=== PATIENT | female | born 1995 | race Caucasian/White ===

== ENCOUNTER 2016-10-24 17:06 | Emergency (ER) | payer BC, MEDICAID ==
[2016-10-24] VITALS (9 sets, daily range): BP systolic 121–132; BP diastolic 77–87; PULSE 70–95; RESP 18
[~2016-10-24 17:06] MED LIST: AZOR5TAB4 PO; CLON0.1T PO; HYDR-3533 PO; METO50TA PO; ZOLO25TA PO
[2016-10-24 19:00] LABS: HEMATOCRIT 36.4 % (35.0-46.0); MEAN CELL VOLUME 86.2 FL (80.0-100.0); MEAN CORPUSCULAR HEMOGLOBIN 28.9 PG (27.0-34.0); MEAN CORPUSCULAR HGB CONC 33.6 % (32.0-36.0); PLATELET COUNT 242 TH/MM3 (150-450); RED BLOOD COUNT 4.22 MIL/MM3 (4.00-5.30); RED CELL DISTRIBUTION WIDTH 13.6 % (11.6-17.2); REVIEW FLAG FINAL; WHITE BLOOD COUNT 9.9 TH/MM3 (4.0-11.0)
[2016-10-24 19:10] LABS: BLOOD, URINE NEG (NEG); CALCIUM OXALATE CRYSTALS,URINE RARE /hpf; COMMENT (UR) CULT NOT INDICATED; CULTURE IF INDICATED CULT NOT INDICATED; GLUCOSE,URINE NEG (NEG); HYALINE CAST, URINE 1 /lpf (RARE); KETONE, URINE NEG (NEG); MUCUS URINE FEW /lpf (OCC); NITRITE,URINE NEG (NEG); SQUAMOUS EPITHELIAL CELL URINE 1 /hpf (0-5); URINE COLOR YELLOW (YELLW/STRAW)
[2016-10-24 19:29] LABS: AMPHETAMINE, URINE NEG (NEG); COCAINE, URINE NEG (NEG)
[2016-10-24 19:29] LABS: ANION GAP 10 MEQ/L (5-15); AST (GOT) 15 U/L (15-37); BICARBONATE 24.9 MEQ/L (21.0-32.0); BLOOD UREA NITROGEN 6 MG/DL (7-18); CHLORIDE 104 MEQ/L (98-107); GLOMERULAR FILTRATION RATE 187 ML/MIN (>89); POTASSIUM 3.7 MEQ/L (3.5-5.1); SODIUM (NA) 139 MEQ/L (136-145); URIC ACID 2.5 MG/DL (2.6-6.0)
[2016-10-24 19:32] LABS: BARBITURATES, URINE NEG (NEG)
[2016-10-24 19:32] LABS: ALKALINE PHOSPHATASE 95 U/L (45-117); ALT (GPT) 20 U/L (10-53); TOTAL BILIRUBIN ADULT 0.2 MG/DL (0.2-1.0)
--- NOTE | 2016-10-24 19:59 | PD ---
HPI Chief Complaint Complaint of high blood pressure high heart rate Date Seen: Oct 24, 2016 Travel History International Travel<30 Days: No Contact w/Intl Traveler<30Days: No Known Affected Area: No History of Present Illness HPI The patient is 21-year-old white female at [address] Daily for care presents complaining of high blood pressure when she was at work today. Patient states that she felt bad and had to take her blood pressure was 190/114, the patient has a history of high blood pressure since she was 14 years old and at one point was on beta blockers other medications for blood pressure. She's been off meds now for quite some time. Since being here on OB ED patient's blood pressures all been within normal range , heart rate is within normal limits reactive to 22 weeks with no contractions seen Para: 1 : 2 History Past Medical History Narrative Medical Chronic hypertension currently not on meds and Dr. Daily is aware of her medical condition Obstetric History Obstetric History One vaginal delivery Social History Alcohol Use: No Tobacco Use: No Substance Abuse: No Allergies-Medications (Allergen,Severity, Reaction): Coded Allergies: Contrast Media (Verified Allergy, Severe, ANAPHYLAXIS, 06/26/15) Naprosyn (Verified Allergy, Severe, BLEEDING, 06/26/15) Sulfa (Verified Allergy, Severe, 06/26/15) Home Meds Active Scripts Clonidine 0.1 Mg Tab0.1 Mg PO Q12HR PRN (SBP>180, DBP>95) #6 TAB Ref 0 Prov:Belen Amaro MD 03/12/16 Hydrocodone-Acetaminophen (Lortab)5-325 Mg Tab1 Tab PO Q6H PRN (PAIN GREATER THAN 6) #7 TAB Ref 0 Prov:Belen Amaro MD 03/12/16 Reported Medications Amlodipine-Olmesartan (Dominguez)5-40 Mg Tab1 Tab PO DAILY #30 TAB Ref 0 03/12/16 Metoprolol Tartrate 50 Mg Tab50 Mg PO DAILY #30 TAB Ref 0 03/12/16 Sertraline (Zoloft)25 Mg Tab25 Mg PO DAILY #30 TAB Ref 0 03/12/16 Review of Systems General / Constitutional: No: Fever, Weight Gain, Chills, Other Eyes: No: Diploplia, Blurred Vision, Visual changes, Pain, Photophobia HENT: No: Headaches, Vertigo, Lightheadedness Cardiovascular: Tachycardia Respiratory: No: Cough, Short of Breath, Other Gastrointestinal: No: Nausea, Vomiting, Diarrhea Genitourinary: No: Decreased Urinary Output, Oliguria Musculoskeletal: No: Limited ROM, Weakness, Cramping, Edema, Pain Skin: No Rash, No Itching, No Dryness, No Lumps, No Change in Pigmentation, No Change in Nails, No Alopecia, No Lesions Neurologic: No: Weakness, Dizziness, Syncope, Focal Abnormalities, Coordination Problem, Headache, Slurred Speech, Seizures Psychiatric: No: Depression, Suicidal Ideations, Homicidal Ideation Endocrine: No: Heat Intolerance, Cold Intolerance, Polydipsia, Polyuria, Other Physical Exam Vital Signs Date Time Temp Pulse Resp B/P Pulse Ox O2 Delivery O2 Flow Rate FiO2 10/24/16 19:00 74 132/84 10/24/16 18:45 77 124/79 10/24/16 18:30 79 126/81 10/24/16 18:23 82 121/87 10/24/16 17:40 95 129/77 Narrative GENERAL: Well-nourished, well-developed patient. SKIN: Warm and dry. HEAD: Normocephalic and atraumatic. EYES: No scleral icterus. No injection or drainage. ENT: No nasal drainage noted. Mucous membranes pink. Airway patent. NECK: Supple, trachea midline. No JVD. CARDIOVASCULAR: Regular rate and rhythm without murmurs, gallops, or rubs. RESPIRATORY: Breath sounds equal bilaterally. No accessory muscle use. BREASTS: Bilateral exam showed no masses , no retractions, no nipple discharge. ABDOMEN/GI: Abdomen soft, non-tender, bowel sounds present, no rebound, no guarding Gravid to [22-] weeks size Fundal Height: [-At umbilicus] GENITOURINARY: External Genitalia: intact and normal in appearance BUS glands: [-] Cervix: [-] Dilatation: [Closed-] Effacement: [-] Thick Station: [-3] Membranes: [intact Uterine Contractions: [none-] FHT's: 144 EXTREMITIES: No cyanosis or edema. BACK: Nontender without obvious deformity. No CVA tenderness. NEUROLOGICAL: Awake and alert. Motor and sensory grossly within normal limits. Five out of 5 muscle strength in all muscle groups. Normal speech. Data Data Orders Vital Signs (Adult) .ON ADMISSION (10/24/16 18:08) ^ Labor Status (10/24/16 18:08) Urinalysis - C+S If Indicated (10/24/16 18:08) Cbc No Diff, Includes Plts (10/24/16 18:08) Comprehensive Metabolic Panel (10/24/16 18:08) Uric Acid (10/24/16 18:08) Ob/Psych Drug Screen, Urine (10/24/16 18:08) Ur Bath Salts (10/24/16 17:18) Ur Heroin (10/24/16 17:18) Ur K2 Spice (10/24/16 17:18) Ur Ecstasy (10/24/16 17:18) Phencyclidine Urine (Pcp) (10/24/16 17:18) Labs Laboratory Tests Test 10/24/16 10/24/16 17:18 18:25 Urine Color YELLOW Urine Turbidity CLEAR Urine pH 6.0 Urine Specific [place] 1.023 Urine Protein TRACE Urine Glucose (UA) NEG Urine Ketones NEG Urine Occult Blood NEG Urine Nitrite NEG Urine Bilirubin NEG Urine Urobilinogen LESS THAN 2.0 Urine Leukocyte Esterase NEG Urine WBC 1 Urine Squamous Epithelial 1 Cells Urine Calcium Oxalate Crystals RARE Urine Hyaline Casts 1 Urine Mucus FEW Microscopic Urinalysis Comment CULT NOT INDICATED Urine Opiates Screen NEG Urine Barbiturates Screen NEG Urine Amphetamines Screen NEG Urine Benzodiazepines Screen NEG Urine Cocaine Screen NEG Urine Cannabinoids Screen NEG White Blood Count 9.9 Red Blood Count 4.22 Hemoglobin 12.2 Hematocrit 36.4 Mean Corpuscular Volume 86.2 Mean Corpuscular Hemoglobin 28.9 Mean Corpuscular Hemoglobin 33.6 Concent Red Cell Distribution Width 13.6 Platelet Count 242 Mean Platelet Volume 7.7 Sodium Level 139 Potassium Level 3.7 Chloride Level 104 Carbon Dioxide Level 24.9 Anion Gap 10 Blood Urea Nitrogen 6 Creatinine 0.42 Estimat Glomerular Filtration 187 Rate Random Glucose 89 Uric Acid 2.5 Calcium Level 8.3 Total Bilirubin 0.2 Aspartate Amino Transf 15 (AST/SGOT) Alanine Aminotransferase 20 (ALT/SGPT) Alkaline Phosphatase 95 Total Protein 6.6 Albumin 2.8 MDM Interpretation(s) This patient is a 21-year-old white female at 22 weeks presents planning of high blood pressure noted at work. She's had some abdominal cramping. She has a history of high blood pressure since she was 14 medications now. One blood pressure at work was 190/114 however here in OB ED she's been here for at least an hour before and all her blood pressures are totally normal, all the patient's cervix is closed-H labs within normal limits her urine shows a trace protein , patient's urine also was negative for any drug use, no cocaine or anything which cause a super spike in her blood pressure Plan Plan we will discharge the patient home to bedrest today. She also describes her job is very labors with lifting heavy boxes overdoing it all the time and she needs to talk to Dr. Daily about this by getting some alteration in her job description so that she can have a physically easier job. This lab drawn today as a baseline for her because she has a history of high blood pressure and may well-developed superimposed regnancy-related hypertension or worsening over the previous hypertensive condition and require 24-hour urines and multiple labs. Diagnosis Diagnosis: Primary Impression: Hypertension Additional Impression: Abdominal pain affecting , antepartum Disposition: 01 DISCHARGE HOME Condition: Stable Blaise Mcguire II, MD Oct 24, 2016 19:59
[2016-10-24] MEDS ORDERED: ONDANSETRON ODT 4 MG TAB PO ONE (20:15)
[2016-11-03 08:44] LABS: BATH SALTS (MDPV) UR NEG (NEG); ECSTASY (MDMA) UR NEG (NEG); GABAPENTIN UR NEG (NEG); HEROIN (6-ACETYLMORPHINE) UR NEG (NEG); HYDROMORPHONE U NEG (NEG); K2 SPICE UR NEG (NEG); OBMETHADONE UR NEG (NEG); OXYCODONE (PERCODAN) NEG (NEG); PHENCYCLIDINE URINE NEG (NEG)
== END 2016-10-24 20:18 | disposition home or self-care (01) ==
LOC: HOBED 17:06
DX: O10.912 Unspecified pre-existing hypertension complicating pregnancy, second trimester (principal); R10.9 Unspecified abdominal pain; Z3A.22 22 weeks gestation of pregnancy
CPT/HCPCS: 80053; 80307; 81001; 84550; 85027; 99283; G0481

== ENCOUNTER 2016-11-24 14:35 | Emergency (ER) | payer BC, MEDICAID ==
--- NOTE | 2016-11-24 15:20 | PD ---
HPI Chief Complaint Contractions and pelvic pressure Date Seen: Nov 24, 2016 Time Seen: 15:18 Travel History International Travel<30 Days: No Contact w/Intl Traveler<30Days: No Known Affected Area: No History of Present Illness HPI 21-year-old at 26 weeks and 4 days comes in complaining of contractions and pelvic pressure for most of today. The Contractions have decreased a bit in frequency and is not complaining of lower back pain as well. Patient had a history of labor with her last which was treated with magnesium sulfate on 2 different occasions but eventually delivered at 36 weeks and 6 days, spontaneous vaginal delivery, 5 lbs. 11 oz. Denies vaginal discharge or bleeding Para: 1 : 2 History Past Medical History Medical History: Denies Significant Hx Obstetric History Obstetric History Spontaneous vaginal delivery Past Surgical History Surgical History: No Previous Surgery Family History Family History: Negative Social History Alcohol Use: No Tobacco Use: No Substance Abuse: No Allergies-Medications (Allergen,Severity, Reaction): Coded Allergies: Contrast Media (Verified Allergy, Severe, ANAPHYLAXIS, 06/26/15) Naprosyn (Verified Allergy, Severe, BLEEDING, 06/26/15) Sulfa (Verified Allergy, Severe, 06/26/15) Home Meds Active Scripts Clonidine 0.1 Mg Tab0.1 Mg PO Q12HR PRN (SBP>180, DBP>95) #6 TAB Ref 0 Prov:Belen Amaro MD 03/12/16 Hydrocodone-Acetaminophen (Lortab)5-325 Mg Tab1 Tab PO Q6H PRN (PAIN GREATER THAN 6) #7 TAB Ref 0 Prov:Belen Amaro MD 03/12/16 Reported Medications Amlodipine-Olmesartan (Dominguez)5-40 Mg Tab1 Tab PO DAILY #30 TAB Ref 0 03/12/16 Metoprolol Tartrate 50 Mg Tab50 Mg PO DAILY #30 TAB Ref 0 03/12/16 Sertraline (Zoloft)25 Mg Tab25 Mg PO DAILY #30 TAB Ref 0 03/12/16 Review of Systems Except as stated in HPI: all other systems reviewed are Neg Physical Exam Narrative GENERAL: Well-nourished, well-developed patient. SKIN: Warm and dry. HEAD: Normocephalic and atraumatic. EYES: No scleral icterus. No injection or drainage. ENT: No nasal drainage noted. Mucous membranes pink. Airway patent. NECK: Supple, trachea midline. No JVD. CARDIOVASCULAR: Regular rate and rhythm without murmurs, gallops, or rubs. RESPIRATORY: Breath sounds equal bilaterally. No accessory muscle use. BREASTS: Bilateral exam showed no masses , no retractions, no nipple discharge. ABDOMEN/GI: Abdomen soft, non-tender, bowel sounds present, no rebound, no guarding Gravid to [-26] weeks size Fundal Height: [-] GENITOURINARY: External Genitalia: intact and normal in appearance BUS glands: [-Normal] Cervix: [Posterior-] Dilatation: [Closed-] Effacement: [-0] Station: [-3-] Presentation: [-Vertex] Membranes: [intact ] Uterine Contractions: [Occasional irregular-] FHT's: Category: [-1] Baseline: [140-] Reactive: [-Reactive] Variability: [-Reactive] Decels: [-Absent] EXTREMITIES: No cyanosis or edema. BACK: Nontender without obvious deformity. No CVA tenderness. NEUROLOGICAL: Awake and alert. Motor and sensory grossly within normal limits. Five out of 5 muscle strength in all muscle groups. Normal speech. fibronectin sent Data Data Orders Vital Signs (Adult) .ON ADMISSION (11/24/16 15:16) ^ Labor Status (11/24/16 15:16) Urinalysis - C+S If Indicated (11/24/16 15:16) Diet Liquid (11/24/16 Dinner) Fibronectin (11/24/16 15:16) Becca Rhodes MD Nov 24, 2016 15:20
[2016-11-24 15:59] LABS: BLOOD, URINE NEG (NEG); GLUCOSE,URINE NEG (NEG); KETONE, URINE NEG (NEG); NITRITE,URINE NEG (NEG); PH, URINE 7.5 (5.0-8.5); URINE COLOR LIGHT-YELLOW (YELLW/STRAW)
[2016-11-24 16:01] LABS: COMMENT (UR) CULT NOT INDICATED; CULTURE IF INDICATED CULT NOT INDICATED
== END 2016-11-24 16:55 | disposition home or self-care (01) ==
LOC: HOBED 14:35
DX: O47.02 False labor before 37 completed weeks of gestation, second trimester (principal); Z3A.26 26 weeks gestation of pregnancy
CPT/HCPCS: 81001; 82731; 99283

== ENCOUNTER 2016-12-25 10:58 | Emergency (ER) | payer BC, MEDICAID ==
[~2016-12-25] VITALS: Ht 152.4 cm; Wt 57.2 kg
--- NOTE | 2016-12-25 11:51 | PD ---
HPI Chief Complaint contractions Date Seen: Dec 25, 2016 Time Seen: 11:46 Travel History International Travel<30 Days: No Contact w/Intl Traveler<30Days: No Known Affected Area: No History of Present Illness HPI 21 yo at 31-32 weeks gestation here with contractions. They have improved greatly since leaving work. Has a h/o delivery at 35 weeks, 5#. Patient is getting biweekly FFN, last FFN was negative 8 days ago at the office. Last exam was closed. Para: 1 : 2 History Past Medical History Medical History: Denies Significant Hx Obstetric History Obstetric History x 1 Past Surgical History Surgical History: No Previous Surgery Family History Family History: Negative Social History Alcohol Use: No Tobacco Use: No Substance Abuse: No Allergies-Medications (Allergen,Severity, Reaction): Coded Allergies: Sulfa (Sulfonamide Antibiotics) (Unverified Allergy, Severe, 12/25/16) diatrizoate meglumine (Unverified Allergy, Severe, ANAPHYLAXIS, 12/25/16) gadobenic acid (Unverified Allergy, Severe, ANAPHYLAXIS, 12/25/16) gadodiamide (Unverified Allergy, Severe, ANAPHYLAXIS, 12/25/16) gadoteridol (Unverified Allergy, Severe, ANAPHYLAXIS, 12/25/16) iodixanol (Unverified Allergy, Severe, ANAPHYLAXIS, 12/25/16) iohexol (Unverified Allergy, Severe, ANAPHYLAXIS, 12/25/16) naproxen (Unverified Allergy, Severe, BLEEDING, 12/25/16) Home Meds Active Scripts Clonidine 0.1 Mg Tab0.1 Mg PO Q12HR PRN (SBP>180, DBP>95) #6 TAB Ref 0 Prov:Belen Amaro MD 03/12/16 Hydrocodone-Acetaminophen (Lortab)5-325 Mg Tab1 Tab PO Q6H PRN (PAIN GREATER THAN 6) #7 TAB Ref 0 Prov:Belen Amaro MD 03/12/16 Reported Medications Amlodipine-Olmesartan (Dominguez)5-40 Mg Tab1 Tab PO DAILY #30 TAB Ref 0 03/12/16 Metoprolol Tartrate 50 Mg Tab50 Mg PO DAILY #30 TAB Ref 0 03/12/16 Sertraline (Zoloft)25 Mg Tab25 Mg PO DAILY #30 TAB Ref 0 03/12/16 Review of Systems Except as stated in HPI: all other systems reviewed are Neg Physical Exam Narrative GENERAL: Well-nourished, well-developed patient. SKIN: Warm and dry. HEAD: Normocephalic and atraumatic. EYES: No scleral icterus. No injection or drainage. ENT: No nasal drainage noted. Mucous membranes pink. Airway patent. NECK: Supple, trachea midline. No JVD. CARDIOVASCULAR: Regular rate and rhythm without murmurs, gallops, or rubs. RESPIRATORY: Breath sounds equal bilaterally. No accessory muscle use. ABDOMEN/GI: Abdomen soft, non-tender, bowel sounds present, no rebound, no guarding Gravid to [32-] weeks size Fundal Height: [-] GENITOURINARY: External Genitalia: intact and normal in appearance BUS glands: [-nl] Cervix: posterios Dilatation: closed Effacement: 50 Station: -3 Presentation: vertex] Membranes: [intact ] Uterine Contractions: [-two contractions since arrival] FHT's: Category: [-1] Baseline: [-145] Reactive: [-mod] Variability: [mod-] Decels: [-absent] EXTREMITIES: No cyanosis or edema. BACK: Nontender without obvious deformity. No CVA tenderness. NEUROLOGICAL: Awake and alert. Motor and sensory grossly within normal limits. Five out of 5 muscle strength in all muscle groups. Normal speech. [facility] Medical Record Reviewed: Yes Plan 21 yo with recent negative FFN with h/o delivery. Occasional contractions with improvement since arrival. Cervix is unchanged at this time. Has appt for repeat FFN next week Diagnosis Diagnosis: Primary Impression: 31 weeks gestation of Additional Impressions: History of delivery, currently in third trimester Irregular uterine contractions Disposition: 01 DISCHARGE HOME Becca Rhodes MD Dec 25, 2016 11:51
[2016-12-25 11:55] LABS: BACTERIA, URINE RARE /hpf; BLOOD, URINE NEG (NEG); COMMENT (UR) CULTURE INDICATED; CULTURE IF INDICATED CULTURE INDICATED; GLUCOSE,URINE NEG (NEG); KETONE, URINE NEG (NEG); MUCUS URINE FEW /lpf (OCC); NITRITE,URINE NEG (NEG); PH, URINE 6.5 (5.0-8.5); SQUAMOUS EPITHELIAL CELL URINE 5 /hpf (0-5); URINE COLOR YELLOW (YELLW/STRAW)
== END 2016-12-25 12:03 | disposition home or self-care (01) ==
LOC: HOBED 10:58
DX: O47.03 False labor before 37 completed weeks of gestation, third trimester (principal); Z3A.31 31 weeks gestation of pregnancy; Z79.899 Other long term (current) drug therapy; Z88.8 Allergy status to other drugs, medicaments and biological substances
CPT/HCPCS: 81001; 87086; 99283

== ENCOUNTER 2017-01-16 00:12 | Emergency (ER) | payer BC, MEDICAID ==
--- NOTE | 2017-01-16 01:19 | PD ---
HPI Chief Complaint ctx Travel History International Travel<30 Days: No Contact w/Intl Traveler<30Days: No Known Affected Area: No History of Present Illness HPI 21-year-old 2 para 1001, IUP at 34.1 care complicated by threatened labor The patient presents complaining complaining of contractions, vaginal breast pressure and a sensation like a shoulder is "falling out." She reports onset of contractions at 7 PM but they increased in frequency and intensity at 9 PM. She reports the contractions are every 10 minutes. As noted she reports associated vaginal pressure. She reports she drinks "a lot" of water. When questioned further this equals 2 bottles of water a day. She denies any leaking of fluid or vaginal bleeding. She reports good movement. She is concerned that she may need to be delivered before the [place]. There were no aggravating or alleviating factors to the contractions and no attempted treatments. Weeks Gestation: 34 Para: 1 : 2 History Past Medical History Medical History: Denies Significant Hx Obstetric History Obstetric History 001 Full-term vaginal delivery 1 Past Surgical History Narrative Surgical Gardner teeth extraction Family History Narrative Family History Diabetes, cancer, coronary artery disease, [place], hypertension Social History Alcohol Use: No Tobacco Use: No Substance Abuse: No Allergies-Medications (Allergen,Severity, Reaction): Coded Allergies: Sulfa (Sulfonamide Antibiotics) (Unverified Allergy, Severe, 12/25/16) diatrizoate meglumine (Unverified Allergy, Severe, ANAPHYLAXIS, 12/25/16) gadobenic acid (Unverified Allergy, Severe, ANAPHYLAXIS, 12/25/16) gadodiamide (Unverified Allergy, Severe, ANAPHYLAXIS, 12/25/16) gadoteridol (Unverified Allergy, Severe, ANAPHYLAXIS, 12/25/16) iodixanol (Unverified Allergy, Severe, ANAPHYLAXIS, 12/25/16) iohexol (Unverified Allergy, Severe, ANAPHYLAXIS, 12/25/16) naproxen (Unverified Allergy, Severe, BLEEDING, 12/25/16) Home Meds Active Scripts Clonidine (Clonidine) 0.1 Mg Tab, 0.1 MG PO Q12HR Y for SBP>180, DBP>95, #6 TAB 0 Refills Prov:Belen Amaro MD 03/12/16 Hydrocodone-Acetaminophen (Lortab) 5-325 Mg Tab, 1 TAB PO Q6H Y for PAIN GREATER THAN 6, #7 TAB 0 Refills Prov:Belen Amaro MD 03/12/16 Reported Medications Amlodipine-Olmesartan (Dominguez) 5-40 Mg Tab, 1 TAB PO DAILY for Blood Pressure Management, #30 TAB 0 Refills 03/12/16 Metoprolol Tartrate (Metoprolol Tartrate) 50 Mg Tab, 50 MG PO DAILY, #30 TAB 0 Refills 03/12/16 Sertraline (Zoloft) 25 Mg Tab, 25 MG PO DAILY, #30 TAB 0 Refills 03/12/16 Review of Systems Except as stated in HPI: all other systems reviewed are Neg Physical Exam Narrative GENERAL: Well-nourished, well-developed patient. SKIN: Warm and dry. HEAD: Normocephalic and atraumatic. EYES: No scleral icterus. No injection or drainage. ENT: No nasal drainage noted. Mucous membranes pink. Airway patent. NECK: Supple, trachea midline. No JVD. CARDIOVASCULAR: Regular rate and rhythm without murmurs, gallops, or rubs. RESPIRATORY: Breath sounds equal bilaterally. No accessory muscle use. BREASTS: Bilateral exam showed no masses , no retractions, no nipple discharge. ABDOMEN/GI: Abdomen soft, non-tender, bowel sounds present, no rebound, no guarding Gravid GENITOURINARY: External Genitalia: intact and normal in appearance. Normal BUS. No cervical or vaginal masses were noted. Physiologic discharge. Normal rugae. SVE 1/50/high. Repeat examination in > one hour showed no cervical change. FHT's: Category 1 heart tones. A sinus in the 120s with good accelerations and no decelerations noted there is moderate long-term variability and a reactive NST. EXTREMITIES: No cyanosis or edema. BACK: Nontender without obvious deformity. No CVA tenderness. NEUROLOGICAL: Awake and alert. Motor and sensory grossly within normal limits. Five out of 5 muscle strength in all muscle groups. Normal speech. Psychiatric: Grossly normal memory and affect Musculoskeletal: grossly normal range of motion, gait, and muscle strength MDM Plan Assessment and plan: 1. IUP at 34.1 2. contractions: No evidence of labor with serial examination unchanged and cervical exam closed at each exam. Irregular contractions noted on the toco monitor. Good hydration was encouraged. Strict labor precautions. 3. UA: No evidence of UTI 4. well-being: Reassuring testing was reactive NST. heart tones were reassuring and appropriate for gestational age. kick counts daily. 5. Follow up with primary OB in 2-3 days or sooner if needed Disposition: 01 DISCHARGE HOME Condition: Good Patient Instructions: Labor (ED), General Instructions, Movement (ED) Marley Moser MD Jan 16, 2017 01:19
[2017-01-16 01:51] LABS: BLOOD, URINE NEG (NEG); CALCIUM OXALATE CRYSTALS,URINE OCC /hpf; GLUCOSE,URINE NEG (NEG); KETONE, URINE TRACE mg/dL (NEG); MUCUS URINE FEW /lpf (OCC); NITRITE,URINE NEG (NEG); SQUAMOUS EPITHELIAL CELL URINE 7 /hpf (0-5); TRANSITIONAL EPI CELLS, URINE <1 /hpf; URINE COLOR YELLOW (YELLW/STRAW)
[2017-01-16 01:52] LABS: COMMENT (UR) CULT NOT INDICATED; CULTURE IF INDICATED CULT NOT INDICATED
== END 2017-01-16 02:39 | disposition home or self-care (01) ==
LOC: HOBED 00:12
DX: O47.03 False labor before 37 completed weeks of gestation, third trimester (principal); Z3A.34 34 weeks gestation of pregnancy
CPT/HCPCS: 59025; 81001

== ENCOUNTER → 2017-01-24 | Emergency (ER) | payer BC, MEDICAID ==
[~2017-01-24] MED LIST changes: +LACTATED RINGER'S 1000 ML INJ 1,000 ML IV SCH; +ONDANSETRON HCL 4 MG/2 ML VIAL IV PUSH PRN; +OXYC1TAB63 PO; +PREN1TAB63; +ZOLO100T PO
--- NOTE | 2017-01-24 12:23 | PD ---
HPI Chief Complaint Nausea and vomitting and lightheadedness Date Seen: Jan 24, 2017 Time Seen: 12:00 Travel History International Travel<30 Days: No Contact w/Intl Traveler<30Days: No Known Affected Area: No History of Present Illness HPI 35 weeks and N&V for 12 hours. No one else sick Weeks Gestation: 35 Para: 1 : 2 History Past Medical History Medical History: Denies Significant Hx Obstetric History Obstetric History delivery Past Surgical History Surgical History: No Previous Surgery Family History Family History: Negative Social History Alcohol Use: No Tobacco Use: No Substance Abuse: No Allergies-Medications (Allergen,Severity, Reaction): Coded Allergies: Sulfa (Sulfonamide Antibiotics) (Unverified Allergy, Severe, 12/25/16) diatrizoate meglumine (Unverified Allergy, Severe, ANAPHYLAXIS, 12/25/16) gadobenic acid (Unverified Allergy, Severe, ANAPHYLAXIS, 12/25/16) gadodiamide (Unverified Allergy, Severe, ANAPHYLAXIS, 12/25/16) gadoteridol (Unverified Allergy, Severe, ANAPHYLAXIS, 12/25/16) iodixanol (Unverified Allergy, Severe, ANAPHYLAXIS, 12/25/16) iohexol (Unverified Allergy, Severe, ANAPHYLAXIS, 12/25/16) naproxen (Unverified Allergy, Severe, BLEEDING, 12/25/16) Home Meds Active Scripts Clonidine (Clonidine) 0.1 Mg Tab, 0.1 MG PO Q12HR Y for SBP>180, DBP>95, #6 TAB 0 Refills Prov:Belen Amaro MD 03/12/16 Hydrocodone-Acetaminophen (Lortab) 5-325 Mg Tab, 1 TAB PO Q6H Y for PAIN GREATER THAN 6, #7 TAB 0 Refills Prov:Belen Amaro MD 03/12/16 Reported Medications Amlodipine-Olmesartan (Dominguez) 5-40 Mg Tab, 1 TAB PO DAILY for Blood Pressure Management, #30 TAB 0 Refills 03/12/16 Metoprolol Tartrate (Metoprolol Tartrate) 50 Mg Tab, 50 MG PO DAILY, #30 TAB 0 Refills 03/12/16 Sertraline (Zoloft) 25 Mg Tab, 25 MG PO DAILY, #30 TAB 0 Refills 03/12/16 Review of Systems Except as stated in HPI: all other systems reviewed are Neg HENT: Lightheadedness Psychiatric: Anxiety Physical Exam Narrative GENERAL: Well-nourished, well-developed patient. SKIN: Warm and dry. HEAD: Normocephalic and atraumatic. EYES: No scleral icterus. No injection or drainage. ENT: No nasal drainage noted. Mucous membranes pink. Airway patent. NECK: Supple, trachea midline. No JVD. BREASTS: Bilateral exam showed no masses , no retractions, no nipple discharge. ABDOMEN/GI: Abdomen soft, non-tender, bowel sounds present, no rebound, no guarding Gravid to 35 weeks size Fundal Height: [-] GENITOURINARY: External Genitalia: intact and normal in appearance BUS glands: [-] Cervix: [-] Dilatation: [-] Effacement: [-] Station: [-] Presentation: vtx Membranes: intact Uterine Contractions: [-] FHT's: Category: 1 Baseline: [-] Reactive: [-] Variability: [-] Decels: [-] EXTREMITIES: No cyanosis or edema. BACK: Nontender without obvious deformity. No CVA tenderness. NEUROLOGICAL: Awake and alert. Motor and sensory grossly within normal limits. Five out of 5 muscle strength in all muscle groups. Normal speech. Data Data Vital Signs Reviewed: Yes Orders Orders Vital Signs (Adult) .ON ADMISSION (01/24/17 12:16) ^ Labor Status (01/24/17 12:16) Cbc No Diff, Includes Plts (01/24/17 12:16) Comprehensive Metabolic Panel (01/24/17 12:16) Lactated Ringer's 1000 Ml Inj (Lr 1000 M (01/24/17 12:16) Ondansetron Inj (Zofran Inj) (01/24/17 12:30) MDM Interpretation(s) nausea and vomitting Critical Care Time (mins): 10 Condition: Good Referrals: Loi Loza MD 1 week Patient Instructions: General Instructions Additional Instructions: patient tolerating PO ok to DC home and follow up as scheduled Departure Forms: Tests/Procedures Loi Loza MD Jan 24, 2017 12:23
[2017-01-24 12:41] LABS: MEAN CELL VOLUME 83.3 FL (80.0-100.0); MEAN CORPUSCULAR HEMOGLOBIN 26.9 PG (27.0-34.0); MEAN CORPUSCULAR HGB CONC 32.3 % (32.0-36.0); PLATELET COUNT 273 TH/MM3 (150-450); RED BLOOD COUNT 4.32 MIL/MM3 (4.00-5.30); RED CELL DISTRIBUTION WIDTH 13.4 % (11.6-17.2); REVIEW FLAG FINAL; WHITE BLOOD COUNT 14.1 TH/MM3 (4.0-11.0)
[2017-01-24 13:03] LABS: ANION GAP 9 MEQ/L (5-15); AST (GOT) 14 U/L (15-37); BICARBONATE 25.1 MEQ/L (21.0-32.0); BLOOD UREA NITROGEN 6 MG/DL (7-18); CHLORIDE 105 MEQ/L (98-107); GLOMERULAR FILTRATION RATE 160 ML/MIN (>89); POTASSIUM 3.6 MEQ/L (3.5-5.1); SODIUM (NA) 139 MEQ/L (136-145)
[2017-01-24 13:04] LABS: ALT (GPT) 18 U/L (10-53)
[2017-01-24 13:06] LABS: ALKALINE PHOSPHATASE 191 U/L (45-117); TOTAL BILIRUBIN ADULT 0.3 MG/DL (0.2-1.0)
== END | disposition home or self-care (01) ==
LOC: HOBED 11:27
DX: O21.2 Late vomiting of pregnancy (principal); Z3A.35 35 weeks gestation of pregnancy
CPT/HCPCS: 59025; 80053; 85027; 96374; 99284; J2405; J3010; J7120

== ENCOUNTER 2017-01-28 22:20 | Emergency (ER) | payer BC, MEDICAID ==
[~2017-01-28 22:20] MED LIST changes: -LACTATED RINGER'S 1000 ML INJ 1,000 ML IV SCH; -ONDANSETRON HCL 4 MG/2 ML VIAL IV PUSH PRN; -OXYC1TAB63 PO; -PREN1TAB63; -ZOLO100T PO
--- NOTE | 2017-01-28 23:06 | PD ---
HPI Chief Complaint Contractions Date Seen: Jan 28, 2017 Time Seen: 23:00 Travel History International Travel<30 Days: No Contact w/Intl Traveler<30Days: No Known Affected Area: No History of Present Illness HPI Patient is 21-year-old white female 36 weeks tomorrow presents complaining of contractions. She sees Dr. Loi Daily for care. She denies bleeding or leakage of fluid. heart rate tracing is reactive and she is aguilar every approximately 5 minutes Weeks Gestation: 36 Para: 1 : 2 History Obstetric History Obstetric History One vaginal delivery Social History Alcohol Use: No Tobacco Use: No Substance Abuse: No Allergies-Medications (Allergen,Severity, Reaction): Coded Allergies: Sulfa (Sulfonamide Antibiotics) (Unverified Allergy, Severe, 12/25/16) diatrizoate meglumine (Unverified Allergy, Severe, ANAPHYLAXIS, 12/25/16) gadobenic acid (Unverified Allergy, Severe, ANAPHYLAXIS, 12/25/16) gadodiamide (Unverified Allergy, Severe, ANAPHYLAXIS, 12/25/16) gadoteridol (Unverified Allergy, Severe, ANAPHYLAXIS, 12/25/16) iodixanol (Unverified Allergy, Severe, ANAPHYLAXIS, 12/25/16) iohexol (Unverified Allergy, Severe, ANAPHYLAXIS, 12/25/16) naproxen (Unverified Allergy, Severe, BLEEDING, 12/25/16) Home Meds Active Scripts Clonidine (Clonidine) 0.1 Mg Tab, 0.1 MG PO Q12HR Y for SBP>180, DBP>95, #6 TAB 0 Refills Prov:Belen Amaro MD 03/12/16 Hydrocodone-Acetaminophen (Lortab) 5-325 Mg Tab, 1 TAB PO Q6H Y for PAIN GREATER THAN 6, #7 TAB 0 Refills Prov:Belen Amaro MD 03/12/16 Reported Medications Amlodipine-Olmesartan (Dominguez) 5-40 Mg Tab, 1 TAB PO DAILY for Blood Pressure Management, #30 TAB 0 Refills 03/12/16 Metoprolol Tartrate (Metoprolol Tartrate) 50 Mg Tab, 50 MG PO DAILY, #30 TAB 0 Refills 03/12/16 Sertraline (Zoloft) 25 Mg Tab, 25 MG PO DAILY, #30 TAB 0 Refills 03/12/16 Review of Systems General / Constitutional: No: Fever, Weight Gain, Chills, Other Eyes: No: Diploplia, Blurred Vision, Visual changes, Pain, Photophobia HENT: No: Headaches, Vertigo, Lightheadedness Cardiovascular: No: Irregular Rhythm, Chest Pain or Discomfort, Palpitations, Tachycardia, Syncope, Varicosities, Edema, Cyanosis Respiratory: No: Cough, Short of Breath, Other Gastrointestinal: No: Nausea, Vomiting, Diarrhea Genitourinary: No: Decreased Urinary Output, Oliguria Musculoskeletal: No: Limited ROM, Weakness, Cramping, Edema, Pain Skin: No Rash, No Itching, No Dryness, No Lumps, No Change in Pigmentation, No Change in Nails, No Alopecia, No Lesions Neurologic: No: Weakness, Dizziness, Syncope, Focal Abnormalities, Coordination Problem, Headache, Slurred Speech, Seizures Psychiatric: No: Depression, Suicidal Ideations, Homicidal Ideation Endocrine: No: Heat Intolerance, Cold Intolerance, Polydipsia, Polyuria, Other Physical Exam Narrative GENERAL: Well-nourished, well-developed patient. SKIN: Warm and dry. HEAD: Normocephalic and atraumatic. EYES: No scleral icterus. No injection or drainage. ENT: No nasal drainage noted. Mucous membranes pink. Airway patent. NECK: Supple, trachea midline. No JVD. CARDIOVASCULAR: Regular rate and rhythm without murmurs, gallops, or rubs. RESPIRATORY: Breath sounds equal bilaterally. No accessory muscle use. BREASTS: Bilateral exam showed no masses , no retractions, no nipple discharge. ABDOMEN/GI: Abdomen soft, non-tender, bowel sounds present, no rebound, no guarding Gravid to [36-] weeks size Fundal Height: [36-] GENITOURINARY: External Genitalia: intact and normal in appearance BUS glands: [-] Cervix: [2-3-] Dilatation: [-2-3] Effacement: [50-] Station: [-3] Presentation: [-vtx] Membranes: [intact ] Uterine Contractions: [q 5 min-] FHT's: Category: [1-] Baseline: [-133] Reactive: yes-] Variability: [mod-] Decels: [-none] EXTREMITIES: No cyanosis or edema. BACK: Nontender without obvious deformity. No CVA tenderness. NEUROLOGICAL: Awake and alert. Motor and sensory grossly within normal limits. Five out of 5 muscle strength in all muscle groups. Normal speech. MDM Interpretation(s) The patient is a 21-year-old white female at 36 weeks presents clinically contractions. The node bleeding or leakage of fluid. Tracing is reactive and she is aguilar back every 5 minutes approximately. She says her but she is showing no real sign and discomfort, cervix is 2-3/ 50 and -3 which is no change from exam yesterday in the office Plan Plan to discharge patient home today. She was offered a pain shot for relief. She is also is informed she can take Tylenol as directed heating pad on her stomach or soak in a hot bath. She is to follow-up with Dr. Daily. He is aware of [facility] and has called to check on her Diagnosis Diagnosis: Primary Impression: False labor Disposition: 01 DISCHARGE HOME Condition: Stable Patient Instructions: General Instructions, Having Your Baby: The Labor Process (GEN), Movement (ED) Departure Forms: Tests/Procedures Blaise Mcguire II, MD Jan 28, 2017 23:05
== END 2017-01-28 23:07 | disposition home or self-care (01) ==
LOC: HOBED 22:20
DX: O47.03 False labor before 37 completed weeks of gestation, third trimester (principal); Z3A.36 36 weeks gestation of pregnancy
CPT/HCPCS: 59025

== ENCOUNTER 2017-02-07 17:29 | Emergency (ER) | payer BC, MEDICAID ==
--- NOTE | 2017-02-07 18:17 | PD ---
HPI Chief Complaint Contractions Date Seen: Feb 07, 2017 Time Seen: 18:13 Travel History International Travel<30 Days: No Contact w/Intl Traveler<30Days: No Known Affected Area: No History of Present Illness HPI 21-year-old 2 para 1 at 37+ weeks gestation who reports irregular contractions for several days. She denies any bleeding or rupture membranes. She has a history of with her first at 35 weeks. She reports having been 3 cm dilated in the office this week. History Past Medical History Narrative Medical Depression, on Zoloft Obstetric History Obstetric History 35 week vaginal delivery Uncomplicated course GBS positive Past Surgical History Narrative Surgical Oral surgery Family History Family History: Negative Social History Alcohol Use: No Tobacco Use: No Substance Abuse: No Allergies-Medications (Allergen,Severity, Reaction): Coded Allergies: Sulfa (Sulfonamide Antibiotics) (Unverified Allergy, Severe, 12/25/16) diatrizoate meglumine (Unverified Allergy, Severe, ANAPHYLAXIS, 12/25/16) gadobenic acid (Unverified Allergy, Severe, ANAPHYLAXIS, 12/25/16) gadodiamide (Unverified Allergy, Severe, ANAPHYLAXIS, 12/25/16) gadoteridol (Unverified Allergy, Severe, ANAPHYLAXIS, 12/25/16) iodixanol (Unverified Allergy, Severe, ANAPHYLAXIS, 12/25/16) iohexol (Unverified Allergy, Severe, ANAPHYLAXIS, 12/25/16) naproxen (Unverified Allergy, Severe, BLEEDING, 12/25/16) Home Meds Active Scripts Clonidine (Clonidine) 0.1 Mg Tab, 0.1 MG PO Q12HR Y for SBP>180, DBP>95, #6 TAB 0 Refills Prov:Belen Amaro MD 03/12/16 Hydrocodone-Acetaminophen (Lortab) 5-325 Mg Tab, 1 TAB PO Q6H Y for PAIN GREATER THAN 6, #7 TAB 0 Refills Prov:Belen Amaro MD 03/12/16 Reported Medications Amlodipine-Olmesartan (Dominguez) 5-40 Mg Tab, 1 TAB PO DAILY for Blood Pressure Management, #30 TAB 0 Refills 03/12/16 Metoprolol Tartrate (Metoprolol Tartrate) 50 Mg Tab, 50 MG PO DAILY, #30 TAB 0 Refills 03/12/16 Sertraline (Zoloft) 25 Mg Tab, 25 MG PO DAILY, #30 TAB 0 Refills 03/12/16 Review of Systems Except as stated in HPI: all other systems reviewed are Neg Physical Exam Narrative GENERAL: Well-nourished, well-developed patient. SKIN: Warm and dry. HEAD: Normocephalic and atraumatic. EYES: No scleral icterus. No injection or drainage. ENT: No nasal drainage noted. Mucous membranes pink. Airway patent. NECK: Supple, trachea midline. No JVD. CARDIOVASCULAR: Regular rate and rhythm without murmurs, gallops, or rubs. RESPIRATORY: Breath sounds equal bilaterally. No accessory muscle use. ABDOMEN/GI: Abdomen soft, non-tender, bowel sounds present, no rebound, no guarding Gravid to [-] weeks size Fundal Height: [-] GENITOURINARY: External Genitalia: intact and normal in appearance BUS glands: [-] Cervix: [-] Dilatation: [-2-3] Effacement: [70-] Station: [--2] Presentation: [-Vertex] Membranes: [intact ] Uterine Contractions: [Mild irregular-] FHT's: Category: [-] Baseline: [-] Reactive: [-Yes] Variability: [-] Decels: [-] EXTREMITIES: No cyanosis or edema. BACK: Nontender without obvious deformity. No CVA tenderness. NEUROLOGICAL: Awake and alert. Motor and sensory grossly within normal limits. Five out of 5 muscle strength in all muscle groups. Normal speech. Data Data Vital Signs Reviewed: Yes Orders Orders Hydroxyzine Pamoate (Vistaril) (02/07/17 18:15) Group B Strep: Positive MDM Medical Record Reviewed: Yes Narrative Course / MDM Assessment: 37+ week intrauterine with irregular contractions, not in labor Plan: Home with labor precautions. 50 mg of by mouth Vistaril. Diagnosis Diagnosis: Primary Impression: False labor Additional Impression: False labor before 37 completed weeks of gestation during in second trimester, antepartum Disposition: 01 DISCHARGE HOME Perry Hand MD Feb 07, 2017 18:17
== END 2017-02-07 19:09 | disposition home or self-care (01) ==
LOC: HOBED 17:29
DX: O47.9 False labor, unspecified (principal); O99.343 Other mental disorders complicating pregnancy, third trimester; Z3A.37 37 weeks gestation of pregnancy; Z79.899 Other long term (current) drug therapy; Z88.8 Allergy status to other drugs, medicaments and biological substances
CPT/HCPCS: 59025

== ENCOUNTER 2017-02-19 06:34 | Inpatient (IN) | payer BC, MEDICAID ==
[2017-02-19] VITALS (28 sets, daily range): BP systolic 102–158; BP diastolic 63–103; PULSE 63–98; RESP 16–18; TEMP 97.6–98
[~2017-02-19] VITALS: Ht 152.4 cm; Wt 70.0 kg
[2017-02-19] MEDS ORDERED: LACTATED RINGER'S 1000 ML INJ 1,000 ML IV PRN (07:33)
[2017-02-19] MEDS ORDERED: LACTATED RINGER'S 1000 ML INJ 1,000 ML IV SCH (07:33)
--- NOTE | 2017-02-19 07:42 | HHI.HP ---
HPI Chief Complaint induction for 39 weeks and 3 cm cervix Date Seen: Feb 19, 2017 Time Seen: 07:15 Travel History International Travel<30 Days: No Contact w/Intl Traveler<30Days: No Known Affected Area: No History of Present Illness HPI 22 yo wf here for induction at 39 weeks. 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) Family History Family History: Negative Social History Alcohol Use: No Tobacco Use: No Substance Abuse: No Allergies-Medications (Allergen,Severity, Reaction): Coded Allergies: Sulfa (Sulfonamide Antibiotics) (Unverified Allergy, Severe, 12/25/16) diatrizoate meglumine (Unverified Allergy, Severe, ANAPHYLAXIS, 12/25/16) gadobenic acid (Unverified Allergy, Severe, ANAPHYLAXIS, 12/25/16) gadodiamide (Unverified Allergy, Severe, ANAPHYLAXIS, 12/25/16) gadoteridol (Unverified Allergy, Severe, ANAPHYLAXIS, 12/25/16) iodixanol (Unverified Allergy, Severe, ANAPHYLAXIS, 12/25/16) iohexol (Unverified Allergy, Severe, ANAPHYLAXIS, 12/25/16) naproxen (Unverified Allergy, Severe, BLEEDING, 12/25/16) Home Meds Active Scripts Clonidine (Clonidine) 0.1 Mg Tab, 0.1 MG PO Q12HR Y for SBP>180, DBP>95, #6 TAB 0 Refills Prov:Belen Amaro MD 03/12/16 Hydrocodone-Acetaminophen (Lortab) 5-325 Mg Tab, 1 TAB PO Q6H Y for PAIN GREATER THAN 6, #7 TAB 0 Refills Prov:Belen Amaro MD 03/12/16 Reported Medications Amlodipine-Olmesartan (Dominguez) 5-40 Mg Tab, 1 TAB PO DAILY for Blood Pressure Management, #30 TAB 0 Refills 03/12/16 Metoprolol Tartrate (Metoprolol Tartrate) 50 Mg Tab, 50 MG PO DAILY, #30 TAB 0 Refills 03/12/16 Sertraline (Zoloft) 25 Mg Tab, 25 MG PO DAILY, #30 TAB 0 Refills 03/12/16 Review of Systems Except as stated in HPI: all other systems reviewed are Neg Physical Exam Narrative GENERAL: Well-nourished, well-developed patient. SKIN: Warm and dry. HEAD: Normocephalic and atraumatic. EYES: No scleral icterus. No injection or drainage. ENT: No nasal drainage noted. Mucous membranes pink. Airway patent. NECK: Supple, trachea midline. No JVD. CARDIOVASCULAR: Regular rate and rhythm without murmurs, gallops, or rubs. RESPIRATORY: Breath sounds equal bilaterally. No accessory muscle use. BREASTS: Bilateral exam showed no masses , no retractions, no nipple discharge. ABDOMEN/GI: Abdomen soft, non-tender, bowel sounds present, no rebound, no guarding Gravid to 39 weeks size Fundal Height: [-] GENITOURINARY: External Genitalia: intact and normal in appearance BUS glands: [-] Cervix: [-] Dilatation: 3 Effacement: 70 Station: [-] Presentation: vtx Membranes: intact Uterine Contractions: [-] FHT's: Category: 1 Baseline: [-] Reactive: [-] Variability: [-] Decels: [-] EXTREMITIES: No cyanosis or edema. BACK: Nontender without obvious deformity. No CVA tenderness. NEUROLOGICAL: Awake and alert. Motor and sensory grossly within normal limits. Five out of 5 muscle strength in all muscle groups. Normal speech. Caprini VTE Risk Assessment Caprini VTE Risk Assessment: No/Low Risk (score <= 1) Caprini Risk Assessment Model Point Value = 1 Point Value = 2 Point Value = 3 Point Value = 5 Age 41-60 Minor surgery BMI > 25 kg/m2 Swollen legs Varicose veins or History of unexplained or recurrent spontaneous Oral contraceptives or hormone replacement Sepsis (< 1 month) Serious lung disease, including pneumonia (< 1 month) Abnormal pulmonary function Acute myocardial infarction Congestive heart failure (< 1 month) History of inflammatory bowel disease Medical patient at bed rest Age 61-74 Arthroscopic surgery Major open surgery (> 45 min) Laparoscopic surgery (> 45 min) Malignancy Confined to bed (> 72 hours) Immobilizing plaster cast Central venous access Age >= 75 History of VTE Family history of VTE Factor V Leiden Prothrombin [id number] Lupus anticoagulant Anticardiolipin antibodies Elevated serum homocysteine Heparin-induced thrombocytopenia Other congenital or acquired thrombophilia Stroke (< 1 month) Elective arthroplasty Hip, pelvis, or leg fracture Acute spinal cord injury (< 1 month) Prophylaxis Regimen Total Risk Factor Score Risk Level Prophylaxis Regimen 0-1 Low Early ambulation 2 Moderate Order ONE of the following: *Sequential Compression Device (SCD) *Heparin 5000 units SQ BID 3-4 Higher Order ONE of the following medications: *Heparin 5000 units SQ TID *Enoxaparin/Lovenox 40 mg SQ daily (WT < 150 kg, CrCl > 30 mL/min) *Enoxaparin/Lovenox 30 mg SQ daily (WT < 150 kg, CrCl > 10-29 mL/min) *Enoxaparin/Lovenox 30 mg SQ BID (WT < 150 kg, CrCl > 30 mL/min) AND/OR *Sequential Compression Device (SCD) 5 or more Highest Order ONE of the following medications: *Heparin 5000 units SQ TID (Preferred with Epidurals) *Enoxaparin/Lovenox 40 mg SQ daily (WT < 150 kg, CrCl > 30 mL/min) *Enoxaparin/Lovenox 30 mg SQ daily (WT < 150 kg, CrCl > 10-29 mL/min) *Enoxaparin/Lovenox 30 mg SQ BID (WT < 150 kg, CrCl > 30 mL/min) AND *Sequential Compression Device (SCD) Data Data Vital Signs Reviewed: Yes Orders Orders Admit To Inpatient (02/19/17 ) Code Status (02/19/17 07:33) Vital Signs (Adult) .Per protocol (02/19/17 07:33) Heart (02/19/17 07:33) Amnioinfusion (02/19/17 07:33) Urinary Catheter Management .ONCE (02/19/17 07:33) Lactated Ringer's 1000 Ml Inj (Lr 1000 M (02/19/17 07:33) Lactated Ringer's 1000 Ml Inj (Lr 1000 M (02/19/17 07:33) Sodium Chlorid 0.9% 500 Ml Inj (Ns 500 M (02/19/17 07:45) Sodium Chlor 0.9% 1000 Ml Inj (Ns 1000 M (02/19/17 07:53) Lidocaine 1% Inj (50 Ml) (Xylocaine 1% I (02/19/17 07:45) Citric Acid-Sodium Citrate Liq (Bicitra (02/19/17 07:45) Fentanyl Inj (Fentanyl Inj) (02/19/17 07:45) Fentanyl Inj (Fentanyl Inj) (02/19/17 07:45) Penicillin G Potassium Inj (Pfizerpen-G (02/19/17 07:45) Penicillin G Potassium Inj (Pfizerpen-G (02/19/17 11:45) Complete Blood Count With Diff (02/19/17 07:33) Hold Clot (02/19/17 07:33) Abo/Rh Blood Type (02/19/17 07:33) Urinalysis - C+S If Indicated (02/19/17 07:33) Resp Oxygen Non Rebreathe Mask (02/19/17 ) ^ Epidural / Intrathecal Infus (02/19/17 07:33) Oxytocin 30 Units-500ml Premix (Pitocin (02/19/17 07:45) Lidocaine 1% Inj (50 Ml) (Xylocaine 1% I (02/19/17 07:45) Light Mineral Oil (Muri-Lube Oil) (02/19/17 07:45) Inpatient Certification (02/19/17 ) Specimen To Be Collected PRN (02/19/17 07:33) ^ Non Stress Test (02/19/17 07:33) Response To Medication .Post New Med Administration, Reaction (02/19/17 07:33) ^ Discontinue Medication (02/19/17 07:33) Oxytocin Drip (2-2-30) (02/19/17 07:45) Group B Strep: Positive Assessment/Plan Problem List: (1) 39 weeks gestation of ICD Codes: Z3A.39 - 39 weeks gestation of Assessment and Plan doing well for induction Loi Loza MD Feb 19, 2017 07:42
[2017-02-19] MEDS ORDERED: MINERAL OIL 10 ML VIAL TOPICAL PRN (07:45)
[2017-02-19] MEDS ORDERED: OXYTOCIN 30 UNITS-500ML PREMIX 500 ML IV ONE (07:45)
[2017-02-19] MEDS ORDERED: CITRIC ACID-SODIUM CITRATE LIQ 30 ML UDC PO SCH (07:45)
[2017-02-19] MEDS ORDERED: OXYTOCIN 30 UNITS-500ML PREMIX 500 ML IV SCH ×3 (07:45→13:00)
[2017-02-19] MEDS ORDERED: SODIUM CHLORID 0.9% 500 ML INJ 500 ML IV PRN (07:45)
[2017-02-19] MEDS ORDERED: LIDOCAINE HCL 1% 50 ML VIAL INFIL PRN (07:45)
[2017-02-19] MEDS ORDERED: LIDOCAINE HCL 1% 50 ML VIAL I-DERMAL PRN (07:45)
[2017-02-19] MEDS ORDERED: PENICILLIN G POTASSIUM INJ 5,000,000 UNITS in SODIUM CHLORIDE 0.9% INJ 100 ML IV ONE (07:45)
[2017-02-19 07:49] LABS: AUTOMATED NEUTROPHIL # 6.9 TH/MM3 (1.8-7.7); BASOPHIL % 0.4 % (0.0-2.0); EOSINOPHIL # 0.2 TH/MM3 (0-0.4); EOSINOPHIL % 1.6 % (0.0-4.0); HEMATOCRIT 33.9 % (35.0-46.0); HEMO FLAGS DIFF FINAL; LYMPH % 20.1 % (9.0-44.0); MEAN CORPUSCULAR HEMOGLOBIN 25.9 PG (27.0-34.0); MEAN CORPUSCULAR HGB CONC 32.7 % (32.0-36.0); MONO % 9.4 % (0.0-8.0); NEUT % 68.5 % (16.0-70.0); PLATELET COUNT 216 TH/MM3 (150-450); RED BLOOD COUNT 4.29 MIL/MM3 (4.00-5.30); RED CELL DISTRIBUTION WIDTH 14.6 % (11.6-17.2); WHITE BLOOD COUNT 10.1 TH/MM3 (4.0-11.0)
[2017-02-19] MEDS ORDERED: SODIUM CHLOR 0.9% 1000 ML INJ 1,000 ML IV PRN (07:53)
[2017-02-19 07:56] LABS: BLOOD, URINE NEG (NEG); COMMENT (UR) CULTURE INDICATED; CULTURE IF INDICATED CULTURE INDICATED; GLUCOSE,URINE NEG (NEG); KETONE, URINE NEG (NEG); MUCUS URINE FEW /lpf (OCC); NITRITE,URINE NEG (NEG); PH, URINE 6.5 (5.0-8.5); SQUAMOUS EPITHELIAL CELL URINE 3 /hpf (0-5); URINE COLOR YELLOW (YELLW/STRAW)
--- NOTE | 2017-02-19 08:14 | PD.LABORPN ---
Objective Objective Pelvic Exam: Cervix: [-] Dilatation: [-] Effacement: [-] Station: [-] Presentation: [-] Membranes: [intact or ruptured] Uterine Contractions: [-] FHT's: Category: [-] Baseline: [-] Reactive: [-] Variability: [-] Decels: [-] Weeks Gestation: 39 Gest Age Assessed Date: Feb 19, 2017 Gest Age Assessed Time: 07:15 Pt started active labor?: Yes Active labor start date: Feb 19, 2017 Active labor start time: 07:45 Medical induction of labor?: No Artificial rupture of membrane: Yes Artificial ROM date: Feb 19, 2017 Artifical ROM time: 07:45 Assessment/Plan Problem List: (1) 39 weeks gestation of ICD Codes: Z3A.39 - 39 weeks gestation of Loi Loza MD Feb 19, 2017 08:14
[2017-02-19] MEDS ORDERED: fentaNYL 2MCG-BUPIV 0.125% INJ 100 ML ONE (08:30)
[2017-02-19] MEDS ORDERED: ePHEDrine/NS 25 MG/5 ML SYR ONE (08:30)
--- NOTE | 2017-02-19 08:30 | HHI.DCPOC ---
Discharge Care Plan Diagnosis: (1) 39 weeks gestation of Report Symptoms to Your Doctor -Temperature above 100.5 degrees -Redness, of incision or excessive or foul smelling drainage -Unusual pain or calf pain -Increased vaginal bleeding -Painful or difficulty urinating -Feelings of extreme sadness or anxiety after 2 weeks Goals to Promote Your Health * To prevent worsening of your condition and complications * To maintain your health at the optimal level Directions to Meet Your Goals Take your medications as prescribed Follow your dietary instruction Follow activity as directed Ensure plenty of rest for recovery Drink fluids for hydration Keep your appointments as scheduled Take your immunizations and boosters as scheduled If your symptoms worsen call your PCP, if no PCP go to Urgent Care Center or Emergency Room Smoking is Dangerous to Your Health. Avoid second hand smoke Call the 24-hour crisis hotline for domestic abuse at Loi Loza MD Feb 19, 2017 08:30
[2017-02-19] MEDS ORDERED: NO SYSTEM NARCOTICS PRN (10:30)
[2017-02-19] MEDS ORDERED: ePHEDrine/NS 25 MG/5 ML SYR IV PUSH PRN (10:30)
[2017-02-19] MEDS ORDERED: fentaNYL 2MCG-BUPIV 0.125% 100 ML EPIDURAL SCH (10:30)
[2017-02-19] MEDS ORDERED: DO NOT ADMINISTER ANTICOAGULANTS PRN (10:30)
--- NOTE | 2017-02-19 10:43 | PD.OB.DELI ---
Weeks gestation: 39 Gest age assessed date: Feb 19, 2017 Gest age assessed time: 07:15 Pt started active labor?: Yes Active labor start date: Feb 19, 2017 Active labor start time: 07:45 Medical induction of labor?: No Artificial rupture of membrane: Yes Artificial ROM date: Feb 19, 2017 Artifical ROM time: 07:45 Anesthesia: Epidural Episiotomy: None Vaginal Delivery: Normal, Spontaneous Presentation: Occiput anterior Nuchal Cord: None Delayed cord clamping (45 sec): Yes : Male, Single Delivery date: Feb 19, 2017 Delivery time: 10:30 One Minute : 8 Five Minute : 9 Placenta: Spontaneous delivery, Intact, 3 vessel cord Laceration: No lacerations Estimated blood loss: 200 Loi Loza MD Feb 19, 2017 10:43
[2017-02-19] MEDS ORDERED: ZOLPIDEM TARTRATE 5 MG TAB PO PRN (10:45)
[2017-02-19] MEDS ORDERED: WITCH HAZEL 50%/GLYCERIN 12.5% 40 PAD JAR TOPICAL PRN (10:45)
[2017-02-19] MEDS ORDERED: BENZOCAINE 20% TOPICAL SPRAY 60 ML CAN TOPICAL PRN (10:45)
[2017-02-19] MEDS ORDERED: oxyCODONE/ACETAMINOPHEN 5 MG/325 MG TAB PO PRN (10:45)
[2017-02-19] MEDS ORDERED: ALUMINUM/MAGNESIUM/SIMETH 30 ML CUP PO PRN (10:45)
[2017-02-19] MEDS ORDERED: DOCUSATE SODIUM 50 MG/SENNA 8.6 MG TAB PO PRN (10:45)
[2017-02-19] MEDS ORDERED: SODIUM CHLORIDE 0.9% FLUSH 10 ML FLUSH IV FLUSH PRN (10:45)
[2017-02-19] MEDS ORDERED: ACETAMINOPHEN 325 MG TAB PO PRN (10:45)
[2017-02-19] MEDS ORDERED: ONDANSETRON ODT 4 MG TAB PO PRN (10:45)
[2017-02-19] MEDS ORDERED: PENICILLIN G POTASSIUM INJ 2,500,000 UNITS in SODIUM CHLORIDE 0.9% INJ 100 ML IV SCH (12:00)
[2017-02-19] MEDS ORDERED: PREN1TAB63 (13:35)
[2017-02-19] MEDS ORDERED: ZOLO100T PO (13:35)
[2017-02-19] MEDS: IBUPROFEN 600 MG TAB PO PRN ×2 (14:37→20:31)
[2017-02-19] MEDS ORDERED: DIPHTH/TETANUS/ACEL PERTUSSIS (BOOSTER) 0.5 ML VIAL/PFS IM ONE (16:00)
[2017-02-19] MEDS ORDERED: MEASLES, MUMPS, RUBELLA VACCINE 0.5 ML VIAL SQ ONE (16:00)
[2017-02-19] MEDS ORDERED: SODIUM CHLORIDE 0.9% FLUSH 10 ML FLUSH IV FLUSH SCH (21:00)
[2017-02-20] MEDS: IBUPROFEN 600 MG TAB PO PRN ×3 (03:30→18:19)
[2017-02-20] MEDS: oxyCODONE/ACETAMINOPHEN 5 MG/325 MG TAB PO PRN (06:19)
[2017-02-20 07:20] VITALS: BP 134/85; PULSE 68; RESP 16; TEMP 98.2
--- NOTE | 2017-02-20 07:57 | HHI.OB ---
Subjective Post Day: 1 Remarks doing well Objective Vitals/I&O Vital Signs Date Time Temp Pulse Resp B/P (MAP) Pulse Ox O2 Delivery O2 Flow Rate FiO2 02/19/17 13:39 98.0 02/19/17 13:39 85 16 135/91 (106) 02/19/17 12:45 18 02/19/17 12:39 80 143/90 (107) 02/19/17 11:15 85 18 146/97 (113) 02/19/17 11:00 98 127/76 (93) 02/19/17 11:00 18 02/19/17 10:51 94 127/88 (101) 02/19/17 10:15 79 146/103 (117) 02/19/17 10:10 84 02/19/17 10:00 97.6 18 02/19/17 10:00 70 02/19/17 10:00 136/84 (101) 02/19/17 09:52 91 151/97 (115) 02/19/17 09:50 78 02/19/17 09:48 63 102/63 (76) 02/19/17 09:45 73 115/71 (86) 02/19/17 09:39 18 02/19/17 09:35 69 02/19/17 09:30 18 02/19/17 09:30 72 115/82 (93) 02/19/17 09:25 68 02/19/17 09:22 63 105/69 (81) 02/19/17 09:20 73 02/19/17 09:16 77 134/82 (99) 02/19/17 09:15 84 02/19/17 09:15 18 02/19/17 09:00 80 02/19/17 09:00 18 02/19/17 09:00 132/101 (111) 02/19/17 08:55 89 02/19/17 08:50 153/103 (120) 02/19/17 08:50 81 02/19/17 08:46 83 158/103 (121) 02/19/17 08:45 98 02/19/17 08:30 18 02/19/17 08:16 78 138/84 (102) Objective Remarks GENERAL: Well-nourished, well-developed patient. . ABDOMEN/GI: Abdomen soft, non-tender. Fundus: Firm, non-tender at umbilicus. GENITOURINARY: Light to moderate bleeding. EXTREMITIES: No cyanosis or edema, non-tender, without signs of DVT. Medications and IVs Current Medications Medications (Trade) Dose Ordered Sig/Rosendo Route Start Time Stop Time Status Last Admin (NS Flush) 2 ml BID IV FLUSH 02/19/17 21:00 (NS Flush) 2 ml UNSCH PRN IV FLUSH 02/19/17 10:45 (Tylenol) 650 mg Q4H PRN PO 02/19/17 10:45 (Motrin) 600 mg Q6H PRN PO 02/19/17 10:45 02/20/17 03:30 (Percocet 5-325 Mg) 1 tab Q4H PRN PO 02/19/17 10:45 02/20/17 06:19 (Percocet 5-325 Mg) 2 tab Q4H PRN PO 02/19/17 10:45 (Americaine 20% Top Spr) 1 spray Q4H PRN TOPICAL 02/19/17 10:45 02/19/17 20:40 (Tucks Pads) 1 applic QID PRN TOPICAL 02/19/17 10:45 02/19/17 20:40 (Karrie-Colace) 2 tab Q12H PRN PO 02/19/17 10:45 (Ambien) 5 mg HS PRN PO 02/19/17 10:45 (Mag-Al Plus Susp Liq) 15 ml Q8H PRN PO 02/19/17 10:45 (Zofran Odt) 4 mg Q6H PRN PO 02/19/17 10:45 02/19/17 14:37 (Zoloft) 100 mg DAILY PO 02/20/17 09:00 Assessment/Plan Problem List: (1) 39 weeks gestation of ICD Codes: Z3A.39 - 39 weeks gestation of Assessment and Plan dc home at 48 Hours Loi Loza MD Feb 20, 2017 07:57
[2017-02-20] MEDS ORDERED: OXYC1TAB63 PO ×2 (07:58→07:59)
[2017-02-20] MEDS: SERTRALINE HCL 100 MG TAB PO SCH (09:32)
[2017-02-20 20:00] VITALS: BP 125/85; PULSE 70; RESP 18; TEMP 96.5
[2017-02-21] MEDS: oxyCODONE/ACETAMINOPHEN 5 MG/325 MG TAB PO PRN (00:15)
[2017-02-21] MEDS ORDERED: DIPHTH/TETANUS/ACEL PERTUSSIS (BOOSTER) 0.5 ML VIAL/PFS IM ONE (08:00)
[2017-02-21] MEDS: SERTRALINE HCL 100 MG TAB PO SCH (09:06)
[2017-02-21] MEDS: IBUPROFEN 600 MG TAB PO PRN (09:06)
--- NOTE | 2017-02-21 10:46 | HHI.DS ---
Admission Date Feb 19, 2017 at 06:34 Discharge Date: Feb 21, 2017 Admitting Diagnosis Diagnosis: Delivery Date: Feb 19, 2017 Vaginal Delivery: Normal Infant: Male, Single Brief History 22 yo wf here for induction at 39 weeks. Pt Condition on Discharge: Good Discharge Disposition: Discharge Home Discharge Instructions Diet Instructions: As Tolerated, No Restrictions Activities You Can Perform: Pelvic Rest Estefania Pittman MD Feb 21, 2017 10:46
== END 2017-02-21 12:45 | disposition home or self-care (01) | DRG 775 ==
LOC: H2EA 06:34 → H1EA 12:59
PROVIDERS: ADMIT Obstetrics & Gynecology; ATTEND Obstetrics & Gynecology
PROC: 10E0XZZ Delivery of Products of Conception, External Approach (ICD-10-PCS; principal; 2017-02-19)
PROC: 10907ZC Drainage of Amniotic Fluid, Therapeutic from Products of Conception, Via Natural or Artificial Opening (ICD-10-PCS; 2017-02-19)
PROC: 3E0P3VZ Introduction of Hormone into Female Reproductive, Percutaneous Approach (ICD-10-PCS; 2017-02-19)
DX: O80 Encounter for full-term uncomplicated delivery (principal); Z88.2 Allergy status to sulfonamides; Z37.0 Single live birth; Z3A.39 39 weeks gestation of pregnancy
CPT/HCPCS: 59025; 81001; 85025; 86900; 86901; 87086; 90715; J2540; J2590; J7120